=== PATIENT | female | born 1970 | race Caucasian/White ===

== ENCOUNTER 2018-08-06 18:13 | Emergency (ER) | payer MEDICAID ==
[~2018-08-06] VITALS: Ht 165.1 cm; Wt 82.3 kg
[2018-08-06] MEDS ORDERED: MULT9LIQ2 PO (18:56)
[2018-08-06] MEDS ORDERED: 0.9% SODIUM CHLORIDE 10 ML SYRINGE IVP PRN (20:00)
[2018-08-06] MEDS ORDERED: SODIUM CHLORIDE 0.9% 1,000 ML IV ONE ×2 (20:00→22:30)
[2018-08-06 20:50] LABS: BASOPHILS % (AUTO) 0.2 % (0.0-2.0); EOSINOPHILS % (AUTO) 0.1 % (1.0-6.0); HEMATOCRIT 36.5 % (36-46); HEMOGLOBIN 11.8 g/dL (12.0-16.0); LYMPHOCYTES # (AUTO) 1.7 K/uL (1.0-4.8); LYMPHOCYTES % (AUTO) 19.2 % (22.0-44.0); MEAN CORPUSCULAR HGB CONC 32.4 G/dL (31.0-37.0); MEAN CORPUSCULAR VOLUME 71 fL (80-100); MONOCYTES # (AUTO) 0.6 K/uL (0.1-1.0); MONOCYTES % (AUTO) 6.5 % (2.0-9.0); NEUTROPHILS # (AUTO) 6.6 K/uL (1.8-7.7); PLATELET COUNT (AUTO) 202 K/uL (150-450); RED BLOOD CELL COUNT(AUTO) 5.13 MIL/uL (4.00-5.20); RED CELL DISTRIBUTION WIDTH 15.2 % (11.5-14.5)
[2018-08-06 21:03] LABS: LACTIC ACID 1.1 mmol/L (0.4-2.0)
[2018-08-06 21:07] LABS: ANION GAP 5 mmol/L (8-16); CALCIUM, TOTAL 7.5 mg/dL (8.8-10.5); CARBON DIOXIDE 29 mmol/L (22-29); CHLORIDE 104 mmol/L (98-107); CREATININE 0.92 mg/dL (0.60-1.30); GLOMERULAR FILTR. RATE CALC > 60 mL/min (>60); GLUCOSE,RANDOM 108 mg/dL (70-110); POTASSIUM 3.4 mmol/L (3.5-5.1); SODIUM SERUM 138 mmol/L (136-145); UREA NITROGEN, BLOOD 10 mg/dL (7-18)
[2018-08-06 21:14] LABS: ALANINE AMINOTRANSFERASE 60 U/L (12-78); ALKALINE PHOSPHATASE 103 U/L (46-116); ASPARTATE AMINOTRANSFERASE 63 U/L (15-37); BILIRUBIN,TOTAL 0.3 mg/dL (0.1-1.0); TOTAL PROTEIN, SERUM 6.6 g/dL (6.4-8.2)
[2018-08-06] MEDS ORDERED: HYDROmorphone 2 MG/ML SYRINGE IVP ONE (21:30)
[2018-08-06 21:40] LABS: INFLUENZA TYPE A NEGATIVE FOR TYPE A (NEGATIVE); INFLUENZA TYPE B NEGATIVE FOR TYPE B (NEGATIVE)
[2018-08-06 21:46] LABS: APPEARANCE,URINE CLOUDY (CLEAR); BILIRUBIN,URINE NEGATIVE (NEGATIVE); GLUCOSE, URINE (UA) NEGATIVE (NEGATIVE); KETONES,URINE NEGATIVE (NEGATIVE); LEUKOCYTE ESTERASE ,URINE NEGATIVE (NEGATIVE); NITRATE,URINE NEGATIVE (NEGATIVE); OCCULT BLOOD,URINE LARGE (NEGATIVE); PH,URINE 5.5 (5.0-8.0); PROTEIN,URINE NEGATIVE (NEGATIVE); UROBILINOGEN,URINE 0.2 mg/dL (<=1.0)
[2018-08-06 21:58] LABS: BACTERIA,URINE Few /HPF (None Seen); SQUAMOUS EPITHELIAL CELL,UR Many /LPF (None Seen)
[2018-08-06 22:30] VITALS: BP 118/64
== END 2018-08-06 22:28 | disposition home or self-care (01) ==
LOC: EMS 18:16
DX: R19.7 Diarrhea, unspecified (principal); R10.84 Generalized abdominal pain; R50.9 Fever, unspecified
CPT/HCPCS: 36415; 71045; 74176; 80053; 81001; 83605; 84703; 85025; 87040; 87804; 93005; 96361; 96374; 99285; J1170; J7030

== ENCOUNTER 2021-07-28 17:56 | Emergency (ER) | payer MEDICAID ==
[~2021-07-28] VITALS: Ht 162.6 cm; Wt 81.8 kg
[~2021-07-28 17:56] MED LIST: MULT9LIQ2 PO
[2021-07-28 18:06] VITALS: BP 157/78
[2021-07-28 20:15] LABS: COVID AG,FIA SOURCE NASAL SWAB
== END 2021-07-28 18:43 | disposition home or self-care (01) ==
LOC: EMS 18:13
DX: U07.1 COVID-19 (principal); R51.9 Headache, unspecified
CPT/HCPCS: 87426; 99283; C9803; U0003

== ENCOUNTER 2022-04-07 21:28 | Emergency (ER) | payer MEDICAID ==
[~2022-04-07] VITALS: Ht 162.6 cm; Wt 81.8 kg
[2022-04-07] MEDS ORDERED: ONDANSETRON HCL 4 MG/2 ML VIAL IVP ONE (22:00)
[2022-04-07] MEDS ORDERED: MORPHINE SULFATE 4 MG/ML SYRINGE IVP ONE (22:00)
[2022-04-07 22:13] LABS: APPEARANCE,URINE CLEAR (CLEAR); BILIRUBIN,URINE NEGATIVE (NEGATIVE); GLUCOSE, URINE (UA) NEGATIVE (NEGATIVE); KETONES,URINE NEGATIVE (NEGATIVE); LEUKOCYTE ESTERASE ,URINE NEGATIVE (NEGATIVE); NITRATE,URINE NEGATIVE (NEGATIVE); OCCULT BLOOD,URINE NEGATIVE (NEGATIVE); PH,URINE 6.5 (5.0-8.0); PROTEIN,URINE TRACE mg/dL (NEGATIVE); SPECIFIC GRAVITIY, URINE 1.029 (1.003-1.030); UROBILINOGEN,URINE <=1.0 mg/dL (<=1.0)
[2022-04-07 22:23] LABS: BASOPHILS % (AUTO) 0.7 % (0.0-2.0); EOSINOPHILS % (AUTO) 0.8 % (1.0-6.0); HEMATOCRIT 35.1 % (36-46); HEMOGLOBIN 11.2 g/dL (12.0-16.0); LYMPHOCYTES # (AUTO) 3.7 K/uL (1.0-4.8); LYMPHOCYTES % (AUTO) 36.5 % (22.0-44.0); MEAN CORPUSCULAR HEMOGLOBIN 22.2 pg (26.0-34.0); MEAN CORPUSCULAR HGB CONC 31.9 G/dL (31.0-37.0); MEAN CORPUSCULAR VOLUME 70 fL (80-100); MONOCYTES # (AUTO) 0.8 K/uL (0.1-1.0); MONOCYTES % (AUTO) 7.9 % (2.0-9.0); NEUTROPHILS # (AUTO) 5.5 K/uL (1.8-7.7); NEUTROPHILS % (AUTO) 54.1 % (40.0-70.0); PLATELET COUNT (AUTO) 271 K/uL (150-450); RED BLOOD CELL COUNT(AUTO) 5.04 MIL/uL (4.00-5.20); RED CELL DISTRIBUTION WIDTH 14.8 % (11.5-14.5)
[2022-04-07 22:24] LABS: COVID AG,FIA SOURCE NASAL SWAB
[2022-04-07 22:32] LABS: CALCIUM, TOTAL 8.4 mg/dL (8.8-10.5); CREATININE 1.01 mg/dL (0.60-1.30); POTASSIUM 3.6 mmol/L (3.5-5.1)
[2022-04-07 22:57] LABS: ALBUMIN 3.5 g/dL (3.4-5.0); BILIRUBIN,TOTAL 0.2 mg/dL (0.1-1.0); TOTAL PROTEIN, SERUM 7.2 g/dL (6.4-8.2)
[2022-04-07 23:00] VITALS: BP 137/94
== END 2022-04-07 23:18 | disposition home or self-care (01) ==
LOC: EMS 21:33
DX: M54.9 Dorsalgia, unspecified (principal); Z85.41 Personal history of malignant neoplasm of cervix uteri; Z98.890 Other specified postprocedural states; Z20.822 Contact with and (suspected) exposure to COVID-19
CPT/HCPCS: 99285; 96374; 71045; 96375; 87426; 80053; 81003; 82550; 83880; 84484; 85025; 85379; 36415; 93005; J2270; J2405

== ENCOUNTER 2022-10-04 00:01 | Emergency (ER) | payer MEDICAID ==
[~2022-10-04] VITALS: Ht 162.6 cm; Wt 81.0 kg
[2022-10-04 00:20] LABS: COVID AG,FIA SOURCE NASAL SWAB
[2022-10-04 00:41] VITALS: BP 135/80
[2022-10-04 01:59] LABS: INFLUENZA TYPE A NEGATIVE FOR TYPE A (NEGATIVE); INFLUENZA TYPE B NEGATIVE FOR TYPE B (NEGATIVE)
[2022-10-04] MEDS ORDERED: IBUP-1554 PO (02:14)
[2022-10-04] MEDS ORDERED: GUAIFDM PO (02:14)
[2022-10-04] MEDS ORDERED: ACET-2080 PO (02:14)
== END 2022-10-04 02:22 | disposition home or self-care (01) ==
LOC: EMS 00:02
DX: U07.1 COVID-19 (principal); J06.9 Acute upper respiratory infection, unspecified; R51.9 Headache, unspecified; F17.210 Nicotine dependence, cigarettes, uncomplicated; Z85.9 Personal history of malignant neoplasm, unspecified; Z98.890 Other specified postprocedural states
CPT/HCPCS: 87804; 99283

== ENCOUNTER 2022-10-13 03:07 | Emergency (ER) | payer MEDICAID ==
[~2022-10-13] VITALS: Ht 162.6 cm; Wt 86.4 kg
[~2022-10-13 03:07] MED LIST changes: +ACET-2080 PO; +GUAIFDM PO; +IBUP-1554 PO
[2022-10-13 04:14] LABS: APPEARANCE,URINE TURBID (CLEAR); BILIRUBIN,URINE NEGATIVE (NEGATIVE); GLUCOSE, URINE (UA) NEGATIVE (NEGATIVE); KETONES,URINE NEGATIVE (NEGATIVE); LEUKOCYTE ESTERASE ,URINE MODERATE (NEGATIVE); NITRATE,URINE NEGATIVE (NEGATIVE); OCCULT BLOOD,URINE LARGE (NEGATIVE); PROTEIN,URINE 300-600,SEE CONFIRM mg/dL (NEGATIVE); SPECIFIC GRAVITIY, URINE 1.019 (1.003-1.030); UROBILINOGEN,URINE <=1.0 mg/dL (<=1.0)
[2022-10-13 04:26] LABS: RBC,URINE >100 /HPF (0-2)
[2022-10-13 04:27] LABS: SQUAMOUS EPITHELIAL CELL,UR Few /LPF (None Seen)
[2022-10-13 04:28] LABS: BACTERIA,URINE Few /HPF (None Seen)
[2022-10-13 04:34] LABS: SULFOSALICYLIC ACID,URINE 4+ (Negative)
[2022-10-13] MEDS ORDERED: CEPH-558 PO ×2 (04:41→13:15)
[2022-10-13] MEDS ORDERED: CEPHALEXIN MONOHYDRATE 500 MG CAPSULE PO ONE (04:45)
[2022-10-13 05:21] VITALS: BP 150/80
== END 2022-10-13 05:23 | disposition home or self-care (01) ==
LOC: EMS 03:07
DX: N39.0 Urinary tract infection, site not specified (principal); F17.210 Nicotine dependence, cigarettes, uncomplicated; Z98.890 Other specified postprocedural states
CPT/HCPCS: 81001; 81002; 84703; 87086; 87186; 99283

== ENCOUNTER 2022-11-09 04:46 | Emergency (ER) | payer MEDICAID ==
[~2022-11-09] VITALS: Ht 162.6 cm; Wt 84.1 kg
[~2022-11-09 04:46] MED LIST changes: +CEPH-558 PO
[2022-11-09] MEDS ORDERED: HYDR25TA PO (04:56)
[2022-11-09] MEDS ORDERED: OxyCODONE HCL/ACETAMINOPHEN 5-325 MG TABLET PO ONE (06:30)
[2022-11-09] MEDS ORDERED: IBUPROFEN 200 MG TABLET PO ONE (06:30)
[2022-11-09] MEDS ORDERED: PERCT PO (08:04)
[2022-11-09] MEDS ORDERED: IBUP-45 PO (08:04)
[2022-11-09 08:14] VITALS: BP 137/87
== END 2022-11-09 08:17 | disposition home or self-care (01) ==
LOC: EMS 04:47
DX: S46.912A Strain of unspecified muscle, fascia and tendon at shoulder and upper arm level, left arm, initial encounter (principal); F17.210 Nicotine dependence, cigarettes, uncomplicated; Z98.890 Other specified postprocedural states; X58.XXXA Exposure to other specified factors, initial encounter; Y93.89 Activity, other specified; Y92.89 Other specified places as the place of occurrence of the external cause; Y99.8 Other external cause status
CPT/HCPCS: 29240; 99283

== ENCOUNTER 2023-10-11 02:16 | Emergency (ER) | payer MEDICAID ==
[~2023-10-11] VITALS: Ht 162.6 cm; Wt 81.0 kg
[~2023-10-11 02:16] MED LIST changes: -ACET-2080 PO; -CEPH-558 PO; -GUAIFDM PO; +HYDR25TA PO; -IBUP-1554 PO; +IBUP-45 PO; -MULT9LIQ2 PO; +PERCT PO
[2023-10-11 02:34] LABS: COVID AG,FIA SOURCE NASAL SWAB
[2023-10-11 03:15] LABS: SARS-COV2 (COVID) ANTIGEN,FIA Negative (Negative)
[2023-10-11 03:16] LABS: INFLUENZA TYPE A NEGATIVE FOR TYPE A (NEGATIVE); INFLUENZA TYPE B NEGATIVE FOR TYPE B (NEGATIVE)
[2023-10-11 03:46] VITALS: BP 142/88; PULSE 76; RESP 14; TEMP 98.9
== END 2023-10-11 04:27 | disposition home or self-care (01) ==
LOC: EMS 02:16
DX: B34.9 Viral infection, unspecified (principal); F17.210 Nicotine dependence, cigarettes, uncomplicated; Z98.890 Other specified postprocedural states; Z20.822 Contact with and (suspected) exposure to COVID-19
CPT/HCPCS: 87804; 99283

== ENCOUNTER 2023-12-07 00:11 | Emergency (ER) | payer MEDICAID ==
[~2023-12-07] VITALS: Ht 162.6 cm; Wt 57.0 kg
[2023-12-07 00:17] VITALS: TEMP 98
[2023-12-07] MEDS: KETOROLAC TROMETHAMINE 30 MG/ML VIAL IM ONE (00:46)
[2023-12-07 01:10] VITALS: BP 122/69; PULSE 80; RESP 20
[2023-12-07] MEDS ORDERED: CYCL-448 PO (06:42)
[2023-12-07] MEDS ORDERED: LIDO700A15 TP (06:42)
== END 2023-12-07 07:10 | disposition home or self-care (01) ==
LOC: EMS 00:12
DX: M54.12 Radiculopathy, cervical region (principal); F17.210 Nicotine dependence, cigarettes, uncomplicated; Z98.890 Other specified postprocedural states
CPT/HCPCS: 99285; 72125; 96372; J1885

== ENCOUNTER → 2024-05-11 | Emergency (ER) | payer OTHER, MEDICAID ==
[~2024-05-11] VITALS: Ht 162.6 cm; Wt 72.7 kg
[~2024-05-11] MED LIST changes: +CYCL-448 PO; +DIPH-1243 PO; +HYDR30CR39 TP; +LIDO700A15 TP; +PRED-554 PO
[2024-05-11 10:58] VITALS: TEMP 98.5; O2SAT 98
[2024-05-11] MEDS: DiphenhydrAMINE HCL 25 MG CAPSULE PO ONE (12:16)
[2024-05-11] MEDS: PredniSONE 20 MG TABLET PO ONE (12:16)
[2024-05-11 12:24] VITALS: BP 145/60; PULSE 82; RESP 16
== END | disposition still patient (30) ==
LOC: EMS 10:53
DX: B88.1 Tungiasis [sandflea infestation] (principal); F17.210 Nicotine dependence, cigarettes, uncomplicated; Z85.41 Personal history of malignant neoplasm of cervix uteri; Z98.890 Other specified postprocedural states
CPT/HCPCS: 99283; J7512